=== PATIENT | female | born 1955 | race Caucasian/White ===

== ENCOUNTER 2023-10-03 15:00 | Outpatient (AMB) | payer MEDICARE, OTHER, SELFPAY ==
[2023-10-03 15:04] VITALS: BP 134/78; PULSE 64; O2SAT 98; BMI 26.6
--- NOTE | 2023-10-03 15:04 | A.OFFVIS_ITS ---
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 The patient is a 68 year woman who has been complaining of worsening shortness of breath. she is very active lady and does not enjoy Although activities. She has been noticing shortness of breath has been limiting her activity. The patient was evaluated from a cardiac standpoint. She underwent a stress test. And she was told was normal. In addition to that she did undergo pulmonary function studies. They were done at [facility]. I do not have the raw data it appears that she did have small airways disease in a suggestion of an obstructive physiology. Therefore the patient was given a rescue inhaler in order to use for exercise-induced asthma. Although she does not feel like it is helping. We did review imaging studies. She has done a chest x-ray demonstrating no acute disease. But she also had a CT scan thoracic spine which I personally reviewed with her. Her lung windows were limited but her hilum did demonstrate significant calcifications of the hilar lymph nodes specially in the right. 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 Based on her ongoing dyspnea symptoms and her abnormal findings in the hilar area I am going to request a CT scan of the chest to better address those findings. In the meantime a cardiopulmonary exercise tolerance test will be helpful to further address her dyspnea symptoms. Will also request additional laboratory data in order to address her ongoing symptoms. [facility] Medical History (Updated 10/07/23 @ 23:23 by Ghassan Forrester MD) Calcified lymph nodes Dyspnea Allergies Asthma Social History (Updated 10/03/23 @ 15:09 by KRYSTA Mayberry) Patient Tobacco Use Status: Never used Tobacco Review of Systems Const Denies fever(s) Eyes Denies change in vision Card Denies chest pain and Reports dyspnea on exertion Resp Reports dyspnea on exertion and Denies wheezing GI Reports no additional complaints Reports no additional complaints Musc Reports no additional complaints Skin/Breast Denies rash Neuro Reports no additional complaints Miguel/Lymph Denies lymphadenopathy Aller/Immun Denies wheezing Physical Exam Vital Signs: Last Vital Signs Pulse 64 10/03/23 15:04 BP 134/78 10/03/23 15:04 Pulse Ox 98 10/03/23 15:04 Oxygen Delivery Method Room Air 10/03/23 15:04 BMI result Body Mass Index 26.6 Const General: no acute distress HEENT Head: Yes normocephalic Neck Neck: Yes supple Chest Chest palpation & inspection: normal inspection of the chest Resp Effort & Inspection: normal respiratory effort Auscultation: clear to auscultation bilaterally Cardio Heart sounds: S1 normal heart sound present and S2 normal heart sound present GI Palpation (GI): Soft to palpation Skin General skin exam: no rashes or lesions noted Extrem General: Yes no clubbing, cyanosis or edema Assessment & Plan Assessment & Plan (1) Allergies: Code(s): T78.40XA - Allergy, unspecified, initial encounter Qualifiers: Encounter type: initial encounter Qualified Code(s): T78.40XA - Allergy, unspecified, initial encounter (2) Asthma: Code(s): J45.909 - Unspecified asthma, uncomplicated Qualifiers: Asthma complication type: uncomplicated Asthma persistence: persistent Asthma severity: moderate Qualified Code(s): J45.40 - Moderate persistent asthma, uncomplicated (3) Dyspnea: Code(s): R06.00 - Dyspnea, unspecified Qualifiers: Dyspnea type: dyspnea on exertion Qualified Code(s): R06.09 - Other forms of dyspnea (4) Calcified lymph nodes: Code(s): I89.8 - Other specified noninfective disorders of lymphatic vessels and lymph nodes Plan Labs CT chest to address abnormal hilar lymph nodes and symptoms CPET GABRIEL 15 minutes before exercise or as needed F/U 2-3 months Orders: Orders T Spot TB 10/03/23 J45.909 - Unspecified asthma, uncomplicated, T78.40XA - Allergy, unspecified, initial encounter Complete Blood Count Auto Diff 10/03/23 J45.909 - Unspecified asthma, uncomplicated, T78.40XA - Allergy, unspecified, initial encounter Basic Metabolic Panel 10/03/23 J45.909 - Unspecified asthma, uncomplicated, T78.40XA - Allergy, unspecified, initial encounter Immunoglobulins,IgG IgA IgM 12/28/23 J45.909 - Unspecified asthma, uncomplicated, T78.40XA - Allergy, unspecified, initial encounter Immunoglobulin E 10/03/23 J45.909 - Unspecified asthma, uncomplicated, T78.40XA - Allergy, unspecified, initial encounter Hypersensitive Pneumonitis Prf 10/03/23 J45.909 - Unspecified asthma, uncomplicated, R91.8 - Other nonspecific abnormal finding of lung field, T78.40XA - Allergy, unspecified, initial encounter Rast Allergen 10/03/23 J45.909 - Unspecified asthma, uncomplicated, T78.40XA - Allergy, unspecified, initial encounter Coding Level of Care Code New Pt Level 4 (42614) Diagnoses Allergy, initial encounter T78.40XA Encounter type: initial encounter Moderate persistent asthma without complication J45.40 Asthma complication type: uncomplicated Asthma persistence: persistent Asthma severity: moderate Dyspnea on exertion R06.09 Dyspnea type: dyspnea on exertion Calcified lymph nodes I89.8 Time Spent (min) 40
== END 2023-10-03 15:47 | disposition home or self-care (01) ==
PROVIDERS: PCP Nurse Practitioner Adult Health; Referring Provider Nurse Practitioner Adult Health; Visit Provider Hospitalist
DX: T78.40XA Allergy, unspecified, initial encounter (principal); J45.40 Moderate persistent asthma, uncomplicated; R06.09 Other forms of dyspnea; I89.8 Other specified noninfective disorders of lymphatic vessels and lymph nodes
CPT/HCPCS: 99204

== ENCOUNTER 2023-10-03 15:00 | Outpatient (REF) | payer MEDICARE, OTHER, SELFPAY | END 2023-10-03 15:01 | disposition home or self-care (01) | LOC: HO.LAB 15:00 | PROVIDERS: PCP Nurse Practitioner Adult Health; Referring Provider Nurse Practitioner Adult Health; Visit Provider Hospitalist | DX: J45.40 Moderate persistent asthma, uncomplicated (principal); R06.00 Dyspnea, unspecified; T78.40XA Allergy, unspecified, initial encounter; I89.8 Other specified noninfective disorders of lymphatic vessels and lymph nodes; R06.09 Other forms of dyspnea | CPT/HCPCS: 36415; 99202 ==

== ENCOUNTER 2023-12-31 09:56 | Outpatient (AMB) | payer MEDICARE, OTHER, SELFPAY ==
--- NOTE | 2023-12-31 10:08 | A.OFFVIS_ITS ---
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 she is very active lady and does not enjoy Although activities. She has been noticing shortness of breath has been limiting her activity. The patient was evaluated from a cardiac standpoint. She underwent a stress test. And she was told was normal. In addition to that she did undergo pulmonary function studies. They were done at [facility]. I do not have the raw data it appears that she did have small airways disease in a suggestion of an obstructive physiology. Therefore the patient was given a rescue inhaler in order to use for exercise-induced asthma. Although she does not feel like it is helping. We did review imaging studies. She has done a chest x-ray demonstrating no acute disease. But she also had a CT scan thoracic spine which I personally reviewed with her. Her lung windows were limited but her hilum did demonstrate significant calcifications of the hilar lymph nodes specially in the right. 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 Based on her ongoing dyspnea symptoms and her abnormal findings in the hilar area I am going to request a CT scan of the chest to better address those findings. In the meantime a cardiopulmonary exercise tolerance test will be helpful to further address her dyspnea symptoms. Will also request additional laboratory data in order to address her ongoing symptoms. 12/31/2023 the patient is here for a pulm onary follow-up visit. She continues to have dyspnea on exertion. Moderate severity. She continues use her inhalers for exercise symptoms asthma. The patient did undergo a cardiopulmonary exercise tolerance test at [facility]. We did review the results. It appears that her Ve/CO2 is slightly elevated suggesting a component of pulmonary vascular disease. In addition to that her breathing reserve significantly decreased suggesting that there may indeed be a ventilatory defect with exercise. In conclusion it appears that her limitation is primarily due to a pulmonary limitation. From a cardiac standpoint she did very well. Still she was able to meet normal level of VO2 max and aerobic capacity. She will try to use her inhaler prior to exercise to minimize small airways disease and help her with her ventilatory defect and also we will further evaluate with blood work to make sure that she does not have any pulmonary vascular limitations. The patient also known lymphadenopathy in calcifications in the lymph nodes in the hilum based on previous CT scans. Based on her ongoing symptoms in the abnormal CPAP will go ahead and request a CT scan of the chest better address her ongoing symptoms and her abnormal findings on previous study. [facility] Medical History (Updated 10/07/23 @ 23:23 by Ghassan Forrester MD) Calcified lymph nodes Dyspnea Allergies Asthma Social History (Updated 10/03/23 @ 15:09 by KRYSTA Mayberry) Patient Tobacco Use Status: Never used Tobacco Review of Systems Const Denies fever(s) Eyes Denies change in vision Card Denies chest pain and Reports dyspnea on exertion Resp Reports dyspnea on exertion and Denies wheezing GI Reports no additional complaints Reports no additional complaints Musc Reports no additional complaints Skin/Breast Denies rash Neuro Reports no additional complaints Miguel/Lymph Denies lymphadenopathy Aller/Immun Denies wheezing Physical Exam Vital Signs: Last Vital Signs Pulse 70 12/31/23 10:09 BP 124/70 12/31/23 10:09 Pulse Ox 99 12/31/23 10:09 Oxygen Delivery Method Room Air 12/31/23 10:09 BMI result Body Mass Index 26.6 Const General: no acute distress HEENT Head: Yes normocephalic Neck Neck: Yes supple Chest Chest palpation & inspection: normal inspection of the chest Resp Effort & Inspection: normal respiratory effort Auscultation: clear to auscultation bilaterally Cardio Heart sounds: S1 normal heart sound present and S2 normal heart sound present GI Palpation (GI): Soft to palpation Skin General skin exam: no rashes or lesions noted Extrem General: Yes no clubbing, cyanosis or edema Assessment & Plan Assessment & Plan (1) Allergies: Code(s): T78.40XA - Allergy, unspecified, initial encounter Qualifiers: Encounter type: initial encounter Qualified Code(s): T78.40XA - Allergy, unspecified, initial encounter (2) Asthma: Code(s): J45.909 - Unspecified asthma, uncomplicated Qualifiers: Asthma complication type: uncomplicated Asthma persistence: persistent Asthma severity: moderate Qualified Code(s): J45.40 - Moderate persistent asthma, uncomplicated (3) Dyspnea: Code(s): R06.00 - Dyspnea, unspecified Qualifiers: Dyspnea type: dyspnea on exertion Qualified Code(s): R06.09 - Other forms of dyspnea (4) Calcified lymph nodes: Code(s): I89.8 - Other specified noninfective disorders of lymphatic vessels and lymph nodes Plan Labs CT chest to address abnormal hilar lymph nodes and symptoms GABRIEL 15 minutes before exercise or as needed F/U 3-4 months Orders: Orders IRON PROFILE Today I89.8 - Other specified noninfective disorders of lymphatic vessels and lymph nodes, R06.00 - Dyspnea, unspecified, T78.40XA - Allergy, unspecified, initial encounter Ferritin Today I89.8 - Other specified noninfective disorders of lymphatic vessels and lymph nodes, R06.00 - Dyspnea, unspecified, T78.40XA - Allergy, unspecified, initial encounter CT chest wo IV con Today I89.8 - Other specified noninfective disorders of lymphatic vessels and lymph nodes, R06.09 - Other forms of dyspnea Coding Level of Care Code Est Pt Level 4 (43536) Diagnoses Allergy, initial encounter T78.40XA Encounter type: initial encounter Moderate persistent asthma without complication J45.40 Asthma complication type: uncomplicated Asthma persistence: persistent Asthma severity: moderate Dyspnea on exertion R06.09 Dyspnea type: dyspnea on exertion Calcified lymph nodes I89.8 Time Spent (min) 19
[2023-12-31 10:09] VITALS: BP 124/70; PULSE 70; O2SAT 99; BMI 26.6
== END 2023-12-31 10:41 | disposition home or self-care (01) ==
PROVIDERS: PCP Nurse Practitioner Adult Health; Visit Provider Hospitalist
DX: T78.40XA Allergy, unspecified, initial encounter (principal); J45.40 Moderate persistent asthma, uncomplicated; R06.09 Other forms of dyspnea; I89.8 Other specified noninfective disorders of lymphatic vessels and lymph nodes
CPT/HCPCS: 99214

== ENCOUNTER → 2023-12-31 09:56 | Outpatient (BNVA) | payer MEDICARE, OTHER, SELFPAY | PROVIDERS: PCP Nurse Practitioner Adult Health; Visit Provider Hospitalist | DX: J45.40 Moderate persistent asthma, uncomplicated (principal); T78.40XA Allergy, unspecified, initial encounter; I89.8 Other specified noninfective disorders of lymphatic vessels and lymph nodes; X58.XXXA Exposure to other specified factors, initial encounter; Y93.9 Activity, unspecified; Y92.9 Unspecified place or not applicable; Y99.9 Unspecified external cause status | CPT/HCPCS: 99212 ==

== ENCOUNTER 2024-02-13 07:18 | Outpatient (REF) | payer MEDICARE, OTHER, SELFPAY ==
--- NOTE | ~2024-02-13 | CT_ITS ---
EXAMINATION: CT CHEST WITHOUT CONTRAST CLINICAL INFORMATION: Calcified lymph nodes and dyspnea. COMPARISON: None available. TECHNIQUE: Multidetector volumetric CT imaging of the chest was done. Axial MIP volume rendering provided. Sagittal and coronal reformatted images were obtained. This CT examination was performed using dose optimization techniques as appropriate, variously including the following: *Automated exposure control *Adjustment of mA and/or kV according to patient size (this includes techniques or standardized protocols for targeted exams where dose is matched to indication/reason for exam; i.e. extremities or head) *Use of iterative reconstruction technique DLP: 126 mGy-cm FINDINGS: LUNGS: There are numerous scattered calcified and noncalcified micronodules throughout the lungs. A 3 mm noncalcified subpleural nodule in the left upper lobe series 5 image 174 is likely a parenchymal lymph node. Densely calcified granuloma in the right upper lobe series 5 image 296. Mild bibasilar scarring or subsegmental atelectasis. No airway wall thickening. No emphysema. MEDIASTINUM: Calcified right hilar lymph nodes. No adenopathy. No pericardial effusion. Thoracic aorta is normal in caliber. CORONARY ARTERY CALCIFICATION: None visualized on this study. PLEURA: There is no pleural effusion. No pleural mass or thickening. AXILLA: No adenopathy. UPPER ABDOMEN: Unremarkable. OSSEOUS STRUCTURES: Degenerative changes in the spine. CT/CT chest wo IV con IMPRESSION: Densely calcified right upper lobe nodule and right hilar lymph nodes consistent with prior granulomatous disease. Additional calcified and noncalcified nodules as above are nonspecific but consistent with granulomas and/or intraparenchymal lymph nodes. No follow-up imaging is recommended as per Fleischner Society guidelines. Fleischner guidelines were followed.
[2024-02-13 08:54] LABS: Iron 87 mcg/dL (30-160); Percent Iron Saturation 33 % (15-50); Total Iron Binding Capacity 265 mcg/dL (228-428); Unsaturated Iron Binding 178 ug/dL
[2024-02-13 09:11] LABS: Ferritin 56 ng/mL (10-250)
== END 2024-02-13 07:19 | disposition home or self-care (01) ==
LOC: HO.CT 07:18
PROVIDERS: PCP Nurse Practitioner Adult Health; Visit Provider Hospitalist
DX: I89.8 Other specified noninfective disorders of lymphatic vessels and lymph nodes (principal); R06.09 Other forms of dyspnea; T78.40XA Allergy, unspecified, initial encounter
CPT/HCPCS: 36415; 71250; 82728; 83540

== ENCOUNTER 2024-06-29 13:13 | Outpatient (AMB) | payer MEDICARE, OTHER, SELFPAY ==
--- NOTE | 2024-06-29 13:18 | MHC.OFFVIS ---
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 she is very active lady and does not enjoy Although activities. She has been noticing shortness of breath has been limiting her activity. The patient was evaluated from a cardiac standpoint. She underwent a stress test. And she was told was normal. In addition to that she did undergo pulmonary function studies. They were done at [facility]. I do not have the raw data it appears that she did have small airways disease in a suggestion of an obstructive physiology. Therefore the patient was given a rescue inhaler in order to use for exercise-induced asthma. Although she does not feel like it is helping. We did review imaging studies. She has done a chest x-ray demonstrating no acute disease. But she also had a CT scan thoracic spine which I personally reviewed with her. Her lung windows were limited but her hilum did demonstrate significant calcifications of the hilar lymph nodes specially in the right. 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 Based on her ongoing dyspnea symptoms and her abnormal findings in the hilar area I am going to request a CT scan of the chest to better address those findings. In the meantime a cardiopulmonary exercise tolerance test will be helpful to further address her dyspnea symptoms. Will also request additional laboratory data in order to address her ongoing symptoms. 12/31/2023 the patient is here for a pulmonary follow-up visit. She continues to have dyspnea on exertion. Moderate severity. She continues use her inhalers for exercise symptoms asthma. The patient did undergo a cardiopulmonary exercise tolerance test at [facility]. We did review the results. It appears that her Ve/CO2 is slightly elevated suggesting a component of pulmonary vascular disease. In addition to that her breathing reserve significantly decreased suggesting that there may indeed be a ventilatory defect with exercise. In conclusion it appears that her limitation is primarily due to a pulmonary limitation. From a cardiac standpoint she did very well. Still she was able to meet normal level of VO2 max and aerobic capacity. She will try to use her inhaler prior to exercise to minimize small airways disease and help her with her ventilatory defect and also we will further evaluate with blood work to make sure that she does not have any pulmonary vascular limitations. The patient also known lymphadenopathy in calcifications in the lymph nodes in the hilum based on previous CT scans. Based on her ongoing symptoms in the abnormal CPAP will go ahead and request a CT scan of the chest better address her ongoing symptoms and her abnormal findings on previous study. 06/29/2024 the patient is here for a pulmonary follow-up visit. Overall the patient has been doing well. She did use the inhaler at times with good effect. She was able to go to vein and she was not too short of breath which is reassuring. She still has other issues including fatigue can joint discomfort. She has been evaluated for that too. She needs to be mindful of deconditioning where her respiratory symptoms can worsen. Therefore did encourage her to start an exercise program. In the meantime she can use the inhaler 15 minutes before exercise or as needed to try to help her with her shortness of breath. She did have a CT scan of the chest back in 02/24/2024 which we personally. She does have a granuloma and also calcified lymph nodes consistent likely with previous infection. She does have a test checked and will do additional blood work. [facility] Medical History (Updated 06/29/24 @ 20:52 by Ghassan Forrester MD) Calcified lymph nodes Dyspnea Allergies Asthma Social History (Updated 10/03/23 @ 15:09 by KRYSTA Mayberry) Patient Tobacco Use Status: Never used Tobacco Review of Systems Const Denies fever(s) Eyes Denies change in vision Card Denies chest pain and Reports dyspnea on exertion Resp Reports dyspnea on exertion and Denies wheezing GI Reports no additional complaints Reports no additional complaints Musc Reports no additional complaints Skin/Breast Denies rash Neuro Reports no additional complaints Miguel/Lymph Denies lymphadenopathy Aller/Immun Denies wheezing Physical Exam Vital Signs: Last Vital Signs Pulse 63 06/29/24 13:23 BP 132/60 06/29/24 13:23 Pulse Ox 98 06/29/24 13:23 Oxygen Delivery Method Room Air 06/29/24 13:23 BMI result Body Mass Index 27.5 Const General: no acute distress HEENT Head: Yes normocephalic Neck Neck: Yes supple Chest Chest palpation & inspection: normal inspection of the chest Resp Effort & Inspection: normal respiratory effort Auscultation: clear to auscultation bilaterally Cardio Heart sounds: S1 normal heart sound present and S2 normal heart sound present GI Palpation (GI): Soft to palpation Skin General skin exam: no rashes or lesions noted Extrem General: Yes no clubbing, cyanosis or edema Assessment & Plan Assessment & Plan (1) Allergies: Code(s): T78.40XA - Allergy, unspecified, initial encounter Category: Medical Qualifiers: Encounter type: initial encounter Qualified Code(s): T78.40XA - Allergy, unspecified, initial encounter (2) Asthma: Code(s): J45.909 - Unspecified asthma, uncomplicated Category: Medical Qualifiers: Asthma severity: moderate Asthma persistence: persistent Asthma complication type: uncomplicated Qualified Code(s): J45.40 - Moderate persistent asthma, uncomplicated (3) Dyspnea: Comment: Likely exercise induced asthma with a decrease respiratory reserve with exercise Code(s): R06.00 - Dyspnea, unspecified Category: Medical Qualifiers: Dyspnea type: dyspnea on exertion Qualified Code(s): R06.09 - Other forms of dyspnea (4) Calcified lymph nodes: Code(s): I89.8 - Other specified noninfective disorders of lymphatic vessels and lymph nodes Category: Medical Plan Labs, r/o TB CT chest reviewed, consistent with granuloma and calcified hilar LN GABRIEL 15 minutes before exercise or as needed F/U 8-12 months Orders: Orders T Spot TB Today I89.8 - Other specified noninfective disorders of lymphatic vessels and lymph nodes, R06.09 - Other forms of dyspnea Complete Blood Count Auto Diff Today I89.8 - Other specified noninfective disorders of lymphatic vessels and lymph nodes, R06.09 - Other forms of dyspnea Immunoglobulin E Today I89.8 - Other specified noninfective disorders of lymphatic vessels and lymph nodes, R06.09 - Other forms of dyspnea Erythrocyte Sedimentation Rate Today I89.8 - Other specified noninfective disorders of lymphatic vessels and lymph nodes, R06.09 - Other forms of dyspnea Pneumococcal 20 Immunization Today Z23 - Encounter for immunization Coding Level of Care Code Est Pt Level 4 (48359) Diagnoses Allergy, initial encounter T78.40XA Encounter type: initial encounter Moderate persistent asthma without complication J45.40 Asthma severity: moderate Asthma persistence: persistent Asthma complication type: uncomplicated Dyspnea on exertion R06.09 Dyspnea type: dyspnea on exertion Calcified lymph nodes I89.8 Time Spent (min) 17
[2024-06-29 13:23] VITALS: BP 132/60; PULSE 63; O2SAT 98; BMI 27.5
== END 2024-06-29 14:11 | disposition home or self-care (01) ==
PROVIDERS: PCP Family Medicine; Visit Provider Hospitalist
DX: T78.40XA Allergy, unspecified, initial encounter (principal); J45.40 Moderate persistent asthma, uncomplicated; R06.09 Other forms of dyspnea; I89.8 Other specified noninfective disorders of lymphatic vessels and lymph nodes; Z23 Encounter for immunization
CPT/HCPCS: 99214

== ENCOUNTER → 2024-06-29 13:13 | Outpatient (BNVA) | payer MEDICARE, OTHER, SELFPAY | PROVIDERS: PCP Nurse Practitioner Adult Health; Visit Provider Hospitalist | DX: J45.40 Moderate persistent asthma, uncomplicated (principal); R06.09 Other forms of dyspnea; I89.8 Other specified noninfective disorders of lymphatic vessels and lymph nodes; T78.40XA Allergy, unspecified, initial encounter; X58.XXXA Exposure to other specified factors, initial encounter; Z23 Encounter for immunization | CPT/HCPCS: 90471; 90677; 99212 ==